=== PATIENT | female | born 1950 | race Asian ===

== ENCOUNTER 2016-12-15 06:36 | Day surgery (SDC) | payer OTHER ==
[~2016-12-15] VITALS: Ht 165.1 cm; Wt 59.0 kg
[2016-12-15] MEDS ORDERED: fentaNYL 0.05 MG/ML VIAL ONE (08:53)
[2016-12-15] MEDS ORDERED: LIDOCAINE 2% 100 MG/5 ML UJET TP ONE (08:53)
== END 2016-12-15 10:11 | disposition home or self-care (01) ==
LOC: EDSEX 06:36 → MDS 06:36 → MMU 06:42 → MDS 10:11
PROVIDERS: ATTEND Internal Medicine Gastroenterology
DX: K64.8 Other hemorrhoids (principal); K21.9 Gastro-esophageal reflux disease without esophagitis; M19.90 Unspecified osteoarthritis, unspecified site
CPT/HCPCS: 45378; J3010